=== PATIENT | female | born 2000 | race Caucasian/White ===

== ENCOUNTER 2018-06-12 13:56 | Emergency (ER) | payer BC, OTHER ==
[~2018-06-12] VITALS: Ht 158.8 cm; Wt 50.3 kg
[2018-06-12 14:13] VITALS: TEMP 37.1; Ht 158.8 cm; Wt 50.3 kg
[2018-06-12] MEDS ORDERED: FEXO1TAB49 PO (14:53)
[2018-06-12] MEDS ORDERED: HYDR1SOL28 PO (14:55)
[2018-06-12] MEDS ORDERED: OXYCODONE HCL IR 5 MG TAB (IMMEDIATE RELEASE) PO STA (15:49)
[2018-06-12] MEDS ORDERED: OXYC-90 PO (16:32)
--- NOTE | 2018-06-12 16:34 | EMERGENCY ROOM VISIT NOTE ---
History First contact with patient: 14:20 Chief Complaint: OTHER COMPLAINT Stated Complaint: BLEEDING IN THROAT AFTER HAVING TONSILS OUT LAST W History of Present Illness The patient is a 18 year old female who presents to the Emergency Room via private vehicle with complaints of "Bleeding in throat after having tonsils out last week". The patient notes that she had a tonsillectomy this past by Dr. Morel. She notes that she has had intermittent bleeding throughout the week which is very minimal. She notes that about 30 minutes ago the bleeding became more severe and with more bleeding. This then prompted her arrival. There is pain as well. Review of Systems A complete 6-point Review of Systems was discussed with the patient, with pertinent positives and negatives listed in the History of Present Illness. All remaining Review of Systems questions can be considered negative unless otherwise specified. Past Medical/Surgical History Recent tonsillectomy Family History No pertinent Social History Smoking Status: Never Smoker Patient is in college and lives locally currently. Current/Historical Medications Scheduled Fexofenadine Hcl (Altagracia Allergy), 1 TAB PO DAILY Scheduled PRN Hydrocodone-Acetaminophen (Hydrocodone/Acetami 7.5/325MG 15ML), 15 ML PO Q4H PRN Oxycodone Ir (Roxicodone Ir), 1 TAB PO Q4H PRN for Pain Physical Exam Vital Signs Date Time Temp Pulse Resp B/P (MAP) Pulse Ox O2 Delivery O2 Flow Rate FiO2 06/12/18 17:15 78 16 118/93 98 06/12/18 15:45 78 16 118/93 98 Room Air 06/12/18 14:13 37.1 88 20 114/82 98 Room Air Physical Exam VITAL SIGNS - Vital signs and nursing notes were reviewed. Stable. Afebrile. GENERAL -18-year-old female appearing her stated age who is in no acute distress. Communicates well with provider and answers questions appropriately. SKIN - Without rashes. No meningeal or petechial rash. HEAD - NC/AT. EYES - PERRL with EOMI bilaterally. Sclera anicteric. EARS - No deformities of external structures noted on gross examination bilaterally. NOSE - Midline and without cyanosis. No epistaxis or purulent drainage noted. MOUTH/OROPHARYNX - Without perioral cyanosis. Buccal mucosa pink and moist and without leukoplakia. Tongue midline with equal elevation of palate bilaterally. Minimal irritation at the site of the tongue without evidence of infection. The tonsils are surgically absent. There is whitish tissue in the posterior pharynx indicative of recent cauterization. Minimal bleeding from the right posterior inferior region where the tonsil was removed. No hemorrhage. NECK - Neck with FROM. Supple to palpation. No lymphadenopathy noted. No nuchal rigidity. Medical Decision & Procedures Medications Administered Medications (Trade) Dose Ordered Sig/Eloina Route Start Time Stop Time Status Last Admin Dose Admin Oxycodone HCl (Roxicodone Immediate Rel Tab) 5 mg NOW STAT PO 06/12/18 15:49 06/12/18 15:50 DC 06/12/18 16:03 5 MG Medical Decision Patient was seen and evaluated as above in room D2. Review was performed of nursing notes and vital signs. After obtaining a thorough history and physical examination the above work up was performed. She presents to us today with concern for bleeding post tonsillectomy 1 week ago. She is not hemorrhaging. There is a small amount of bleeding. I did have her gargle with cold water with ice. After several tries at this there was successful hemostasis. I then observed her here for quite some time without persistence of bleeding. She was able tolerate p.o. fluids. She did request something stronger for pain. She was given oxycodone. No red flags in the PDMP. I discussed the case with her ENT doctor, Dr. Morel. At this time she was felt stable for outpatient management. She is to return with worsening. The patient was educated upon management, educated upon todays findings/results, educated upon symptoms in which to return, had questions answered prior to discharge, and was discharged home in good condition. Case was discussed with the attending physician. In the evaluation and treatment of this patient the following differential diagnoses were entertained: Post tonsillectomy hemorrhage/bleeding, infection, among others Impression Primary Impression: post tonsillectomy bleeding Departure Information Dispostion Home / Self-Care Condition GOOD Prescriptions Oxycodone Ir (Roxicodone Ir) 5 Mg Tab 1 TAB PO Q4H Y for Pain, #18 TAB For Initial Treatment Prov: Cole Tillman PA-C 06/12/18 Referrals Shanna Joseph D.O. (PCP) Patient Instructions My [facility] Additional Instructions You were seen in the emergency department for bleeding following a tonsillectomy. Your prescribed oxycodone. Begin with 1 tablet every 8 hours. This is only for severe pain. No driving with this medication. Do not take this with the other pain medication that was prescribed by Dr. Galeano. Return to the emergency department if your symptoms persist or worsen over the next 2-3 days despite treatment course outlined above. Return to the emergency department if you develop the following symptoms of: inability to swallow solids , liquids, or drool; excessive wheezing or inability to catch your breath; or intractable fever or pain or bleeding. Please return with any new/concerning symptoms
[2018-06-12 17:15] VITALS: BP 118/93; PULSE 78; O2SAT 98
== END 2018-06-12 17:15 | disposition home or self-care (01) ==
LOC: C.EDB 13:57 → C.EDD 17:15
DX: J95.830 Postprocedural hemorrhage of a respiratory system organ or structure following a respiratory system procedure (principal)